=== PATIENT | female | born 1990 | race Caucasian/White ===

== ENCOUNTER → 2020-08-16 | Emergency (ER) | payer MEDICAID ==
[~2020-08-16] VITALS: Ht 170.2 cm; Wt 68.2 kg
[2020-08-16 19:41] VITALS: PULSE 78; TEMP 98.5
== END ==
LOC: COL.ER 19:16
DX: R69 Illness, unspecified (principal)

== ENCOUNTER → 2020-08-16 | Emergency (ER) | LOC: COL.ER 18:22 | DX: R69 Illness, unspecified (principal) ==